=== PATIENT | female | born 1970 | race Caucasian/White ===

== ENCOUNTER 2021-07-04 22:16 | Emergency (ER) | payer MEDICAID ==
[2021-07-04] MEDS ORDERED: lamICTAL 100MG TABLET PO ONE (22:17)
[2021-07-04] MEDS ORDERED: Sodium Chloride 0.9% 1000 ML 1,000 ML IV SCH (22:30)
[2021-07-04 23:09] LABS: Absolute Neutrophil Ct (ANC) 5.63 (1.4-6.9); Basophil (Absolute #) 0 (0-0.4); Eosinophil % 5.7 % (0.00-5.0); Eosinophil (Absolute #) 0.46 (0-0.5); Hematocrit 42.3 % (35-47); Hemoglobin 13.3 gm/dl (12.0-16.0); Lymphocytes % 17.4 % (24.0-44.0); Mean Cell Volume 94.8 fl (78-100); Mean Corpuscular Hemoglobin 29.8 pg (26-32); Mean Corpuscular Hgb Concent. 31.4 g/dl (32-36); Mean Platelet Volume 9.8 fl (7.5-11.0); Monocyte (Absolute #) 0.56 (0.0-1.3); Neutrophil % 69.9 % (36.0-66.0); Platelet Count 213 K/mm3 (150-450); Red Blood Count 4.46 M/mm3 (4.1-5.4); White Blood Count 8.1 K/mm3 (4.0-10.5)
[2021-07-04] MEDS ORDERED: Sodium Chloride 0.9% 1000 ML 1,000 ML ONE (23:10)
[2021-07-04 23:22] LABS: ALBUMIN 3.9 g/dL (3.5-5.0); ALKALINE PHOSPHATASE 87 U/L (38-126); ANION GAP 12.3 MEQ/L (5-15); BLOOD UREA NITROGEN 12 mg/dL (7-17); CHLORIDE 106 mmol/L (98-107); Calcium 9.2 mg/dL (8.4-10.2); Carbon Dioxide 25 mmol/L (22-30); Creatinine 1 0.64 mg/dL (0.52-1.04); EST GLOMERULAR FILTRATION RATE > 60.0 ML/MIN; ETHYL ALCOHOL < 10 mg/dL (0-10); Glucose 111 mg/dL (74-106); Potassium 3.7 mmol/L (3.5-5.1); SGOT/AST 37 U/L (14-36); SGPT/ALT 19 U/L (0-35); SODIUM 140 mmol/L (137-145); Total Protein 6.6 g/dL (6.3-8.2)
[2021-07-04] MEDS ORDERED: lamICTAL 100MG TABLET PO STA (23:55)
[2021-07-05] MEDS ORDERED: lamICTAL 100MG TABLET ONE (00:06)
[2021-07-05] MEDS ORDERED: lamICTAL 100MG TABLET PO STA (00:10)
--- NOTE | 2021-07-05 00:10 | ERPHSYRPT ---
- History of Present Illness Time Seen by Provider: 07/04/21 22:30 Source: patient Exam Limitations: no limitations Patient Subjective Stated Complaint: Patient states " I was a [facility] ER this evening because of my seizures. I haven't been able to take my lamictal since Saturday because I do not have any and I cannot get my prescription filled because of my Insurance." EMS reports that they were called because patient noted to have seizure according to family. EMS reports patient was postdictal upon arrival. Triage Nursing Assessment: Patient arrived to ED via ambulance. Patient A/O times 4. Patient able to follow instructions without difficulty. Patient central color pale. Respiratory regular and easy and non-labored. Lungs clear bilateral A/P throughout. Patient denies any SOB. Patient 02 sat 100% on 2L per N/C. Cap refill < 3 seconds. Patient denies any SOB or chest pain. + BS times 4 quads. ABD large, obese, non-distended. Patient denies any pain or discomfort upon palpitation. No dependent edema noted. Bilateral hand tool design drafter strong and equal. Bilateral pupils brisk and equal. Patient stated they discharged her from [facility] ER with no medication R/T seizures. Patient's family states this is her 2nd seizure today. Patient states she hasn't had her lamictal since Saturday. Patient noted with internal stimulator in left anterior for seizures. According to family stimulator did stop seizure earlier today. Physician History: Patient is a 50-year-old female presents to our ED for evaluation of seizure. Patient has a history of seizure disorder. Patient is on Lamictal and Keppra for the seizure disorder. Patient ran out of her Lamictal on Saturday. Since then patient has had multiple seizures. Patient states the insurance will not pay for her Lamictal. However family contacted insurance today and they will arrange payment. Patient arrived via EMS. Patient received 4 mg of Zofran and 2.5 mg of Versed IV. Upon arrival patient was postictal. Patient gradually awoke and is now well. Patient was seen earlier today for the same at [facility]. Patient was worked up extensively however she was discharged without her medications. Patient went home and had a generalized s eizure observed by family. No trauma. Patient has a contusion to the lateral aspect of her tongue on the right side. Patient is currently neurologically normal. Patient does not have a headache. No blurred vision. No neurological symptoms. No numbness tingling or weakness. Patient states she just needs her Lamictal. No signs of head trauma. Timing/Duration: today Severity: moderate Modifying Factors: Improves With: nothing Associated Symptoms: denies symptoms Allergies/Adverse Reactions: divalproex sodium [From Depakote] Allergy (Mild, Verified 07/04/21 22:21) Itching phenobarbital Adverse Reaction (Mild, Verified 07/04/21 22:21) Nausea and Vomiting Home Medications: Levetiracetam [Keppra 500 mg ] 500 mg PO BID 07/04/21 [History] Omeprazole 20 mg PO DAILY 07/04/21 [History] lamoTRIgine [Lamictal] 150 mg PO BID 07/04/21 [History] Hx Tetanus, Diphtheria Vaccination/Date Given: Yes Hx Influenza Vaccination/Date Given: No Hx Pneumococcal Vaccination/Date Given: No Immunizations Up to Date: Yes Travel Risk - International Travel Have you traveled outside of the country in past 3 weeks: No - Coronavirus Screening Are you exhibiting any of the following symptoms?: No Close contact with a COVID-19 positive Pt in past 14-21 Days: No - Vaccine Status Have you recieved a Covid-19 vaccination: No - Review of Systems Constitutional: No Symptoms, No Fever, No Chills Eyes: No Symptoms Ears, Nose, & Throat: No Symptoms Respiratory: No Symptoms, No Cough, No Dyspnea Cardiac: No Symptoms, No Chest Pain, No Edema, No Syncope Abdominal/Gastrointestinal: No Symptoms, No Abdominal Pain, No Nausea, No Vomiting, No Diarrhea Genitourinary Symptoms: No Symptoms, No Dysuria Musculoskeletal: No Symptoms, No Back Pain, No Neck Pain Skin: No Symptoms, No Rash Neurological: No Symptoms, No Dizziness, No Focal Weakness, No Sensory Changes Psychological: No Symptoms Endocrine: No Symptoms Hematologic/Lymphatic: No Symptoms Immunological/Allergic: No Symptoms All Other Systems: Reviewed and Negative - Past Medical History Pertinent Past Medical History: Yes Neurological History: Migraines, Seizures ENT History: No Pertinent History Cardiac History: No Pertinent History Respiratory History: No Pertinent History Endocrine Medical History: No Pertinent History Musculoskeletal History: No Pertinent History GI Medical History: GERD History: No Pertinent History Psycho-Social History: No Pertinent History Female Reproductive Disorders: No Pertinent History - Past Surgical History Past Surgical History: Yes Neuro Surgical History: No Pertinent History Cardiac: No Pertinent History Respiratory: No Pertinent History Gastrointestinal: Cholecystectomy Genitourinary: No Pertinent History Musculoskeletal: No Pertinent History Female Surgical History: Section Other Surgical History: HX Gastric Bypass. Internal Stimulator Left Anterior - Social History Smoking Status: Never smoker Exposure to second hand smoke: Yes Drug Use: none Patient Lives Alone: No - Female History Hx Last Menstrual Period: Tubal Hx Now: No - Nursing Vital Signs Nursing Vital Signs: Initial Vital Signs O2 Sat by Pulse Oximetry 100 07/04/21 22:26 Pain Scale Pain Intensity 0 - Physical Exam General Appearance: no apparent distress, alert Eye Exam: PERRL/EOMI, eyes nml inspection Ears, Nose, Throat Exam: normal ENT inspection, TMs normal, pharynx normal, moist mucous membranes Neck Exam: normal inspection, non-tender, supple, full range of motion Respiratory Exam: normal breath sounds, lungs clear, No respiratory distress Cardiovascular Exam: regular rate/rhythm, normal heart sounds, normal peripheral pulses Gastrointestinal/Abdomen Exam: soft, normal bowel sounds, No tenderness, No mass Back Exam: normal inspection, normal range of motion, No CVA tenderness, No vertebral tenderness Extremity Exam: normal inspection, normal range of motion, pelvis stable Neurologic Exam: alert, oriented x 3, cooperative, normal mood/affect, sensation nml, No motor deficits Skin Exam: normal color, warm, dry, No rash Lymphatic Exam: No adenopathy SpO2 Interpretation: normal SpO2: 100 O2 Delivery: Room Air - Course Nursing assessment & vital signs reviewed: Yes EKG Interpreted by Me: RATE (92), Sinus Rhythm, NORMAL AXIS, NORMAL INTERVALS Ordered Tests: Active Orders 24 hr Category Date Time Status International Sales Manager STAT Care 07/04/21 22:27 Active EKG-ER Only STAT Care 07/04/21 22:26 Active IV Insertion STAT Care 07/04/21 22:26 Active Pulse Oximetry (ED) STAT Care 07/04/21 22:26 Active CBC W DIFF Stat Lab 07/04/21 23:00 Completed CMP Stat Lab 07/04/21 23:00 Completed ETHYL ALCOHOL Stat Lab 07/04/21 23:00 Completed TROPONIN Q3H Lab 07/04/21 23:00 Completed TROPONIN Q3H Lab 07/05/21 01:30 Ordered TROPONIN Q3H Lab 07/05/21 04:30 Ordered TROPONIN Q3H Lab 07/05/21 07:30 Ordered TROPONIN Q3H Lab 07/05/21 10:30 Ordered UA W/RFX UR CULTURE Stat Lab 07/04/21 22:26 Ordered Urine Triage Profile Stat Lab 07/04/21 22:26 Ordered Medication Summary Generic Name Dose Route Start Last Admin Trade Name Freq PRN Reason Stop Dose Admin Sodium Chloride 1,000 mls @ 100 mls/hr 07/04/21 22:30 07/04/21 23:12 Sodium Chloride 0.9% 1000 Ml IV 08/03/21 22:29 100 mls/hr .Q10H DORY Administration Discontinued Medications Generic Name Dose Route Start Last Admin Trade Name Freq PRN Reason Stop Dose Admin Lamotrigine 150 mg 07/04/21 23:55 07/05/21 00:10 Lamictal 100mg Tablet PO 07/04/21 23:56 150 mg ONCE STA Administration Lamotrigine Confirm 07/05/21 00:06 Lamictal 100mg Tablet Administered 07/05/21 00:07 Dose 300 mg .ROUTE .STK-MED ONE Lamotrigine 150 mg 07/05/21 00:10 07/05/21 00:12 Lamictal 100mg Tablet PO 07/05/21 00:11 150 mg KVO STA Administration Lab/Rad Data: Laboratory Result Diagrams 07/04/21 23:00 07/04/21 23:00 Laboratory Results 07/04/21 07/04/21 07/04/21 Range/Units 23:00 23:00 23:00 WBC 8.1 (4.0-10.5) K/mm3 RBC 4.46 (4.1-5.4) M/mm3 Hgb 13.3 (12.0-16.0) gm/dl Hct 42.3 (35-47) % MCV 94.8 (78-100) fl MCH 29.8 (26-32) pg MCHC 31.4 L (32-36) g/dl RDW 13.0 (11.5-14.0) % Plt Count 213 (150-450) K/mm3 MPV 9.8 (7.5-11.0) fl Gran % 69.9 H (36.0-66.0) % Eos # (Auto) 0.46 (0-0.5) Absolute Lymphs (auto) 1.40 (1.0-4.6) Absolute Monos (auto) 0.56 (0.0-1.3) Lymphocytes % 17.4 L (24.0-44.0) % Monocytes % 7.0 (0.0-12.0) % Eosinophils % 5.7 H (0.00-5.0) % Basophils % 0.0 (0.0-0.4) % Absolute Granulocytes 5.63 (1.4-6.9) Basophils # 0 (0-0.4) Sodium 140 (137-145) mmol/L Potassium 3.7 (3.5-5.1) mmol/L Chloride 106 (98-107) mmol/L Carbon Dioxide 25 (22-30) mmol/L Anion Gap 12.3 (5-15) MEQ/L BUN 12 (7-17) mg/dL Creatinine 0.64 (0.52-1.04) mg/dL Estimated GFR > 60.0 ML/MIN Glucose 111 H (74-106) mg/dL Calcium 9.2 (8.4-10.2) mg/dL Total Bilirubin 0.40 (0.2-1.3) mg/dL AST 37 H (14-36) U/L ALT 19 (0-35) U/L Alkaline Phosphatase 87 (38-126) U/L Troponin I 0.019 (0.000-0.034) ng/mL Serum Total Protein 6.6 (6.3-8.2) g/dL Albumin 3.9 (3.5-5.0) g/dL Ethyl Alcohol < 10 (0-10) mg/dL - Progress Progress: improved Progress Note: Patient received a dose of Lamictal in our ED. Patient also received Lamictal for home to last for 2 days. Patient takes Keppra however she does not require a refill of her Keppra. Repeat neuro exam within normal limits. Patient feels well. Patient states ready for discharge. Will discharge home. Patient will work on obtaining a long-term prescription for her Lamictal tomorrow. Patient understand that this is important. If she does not refill her Lamictal she will likely develop another seizure. Plan of care discussed with patient. She agrees to follow-up as indicated. Portions of this note were created with voice recognition technology. There may be grammatical, spelling, punctuation or sound alike errors 07/05/21 00:45 Counseled pt/family regarding: lab results, diagnosis, need for follow-up - Departure Departure Disposition: Home Clinical Impression: Seizure, Noncompliance with medication regimen Condition: Stable Critical Care Time: No Referrals: NATHEN LINDER [Primary Care Provider] - Instructions: Seizures, Adult (DC) Additional Instructions: Discharge/Care Plan MIRIAM CASTELLON was seen on 07/05/21 in the Emergency Room. The patient was counseled regarding Diagnosis,Lab results, Imaging studies, need for follow up a nd when to return to the Emergency Room. Prescriptions given: Discharge Note I have spoken with the patient and/or caregivers. I have explained the patient's condition, diagnosis and treatment plan based on the information available to me at this time. I have answered the patient's and/or caregiver's questions and addressed any concerns. The patient and/or caregivers have as good understanding of the patient's diagnosis, condition and treatment plan as can be expected at this point. The vital signs have been stable. The patient's condition is stable and appropriate for discharge from the emergency department. The patient will pursue further outpatient evaluation with the primary care physician or other designated or consulting physician as outlined in the discharge instructions. The patient and/or caregivers are agreeable to this plan of care and follow-up instructions have been explained in detail. The patient and/or caregivers have received these instruction. The patient/and or caregivers are aware that any significant change in condition or worsening of symptoms should prompt an immediate return to this or the closest emergency department or call 911.
[2021-07-05 01:05] VITALS: BP 106/67; PULSE 72; O2SAT 98
== END 2021-07-05 01:00 | disposition home or self-care (01) ==
LOC: ED 22:16
DX: R56.9 Unspecified convulsions (principal); Z91.14 Patient's other noncompliance with medication regimen; Z79.899 Other long term (current) drug therapy
CPT/HCPCS: 36000; 36415; 80053; 80307; 84484; 85025; 93005; 93041; 94760; 99284; A9270-GY; G0480